=== PATIENT | female | born 1985 | race African-American/Black ===

== ENCOUNTER 2017-10-22 12:40 | Emergency (ER) | payer MEDICAID ==
[~2017-10-22] VITALS: Ht 152.4 cm; Wt 89.3 kg
[2017-10-22 13:02] VITALS: BP 114/65; Ht 152.4 cm; Wt 89.3 kg
== END 2017-10-22 14:41 | disposition home or self-care (01) ==
LOC: ED 12:40
DX: S00.83XA Contusion of other part of head, initial encounter (principal); S50.811A Abrasion of right forearm, initial encounter; Z88.5 Allergy status to narcotic agent; V89.2XXA Person injured in unspecified motor-vehicle accident, traffic, initial encounter; Y93.73 Activity, racquet and hand sports; Y92.488 Other paved roadways as the place of occurrence of the external cause; Y99.8 Other external cause status